=== PATIENT | female | born 1970 | race African-American/Black ===

== ENCOUNTER 2024-01-20 18:41 | Emergency (ER) | payer OTHER ==
[~2024-01-20] VITALS: Ht 165.1 cm; Wt 73.0 kg
[2024-01-20 18:43] VITALS: O2SAT 100
[2024-01-20 19:06] VITALS: TEMP 98.4
[2024-01-20] MEDS: ASPIRIN 81MG TABLET PO ONE (19:14)
[2024-01-20] MEDS: METOPROLOL TARTRATE 25MG TABLET PO ONE (19:15)
[2024-01-20 20:03] LABS: BASOPHILS % 0.6 % (0.0-2.0); DIFFERENTIAL COMMENT 1; EOSINOPHILS % 6.3 % (0.0-5.0); HEMATOCRIT. 41.5 % (36.0-48.0); HEMOGLOBIN. 13.9 g/dL (12.0-16.0); MEAN CORPUSCULAR HEMOGLOBIN 30.2 pg (28.0-32.0); MEAN CORPUSCULAR HGB CONC 33.6 g/dL (31.0-37.0); MEAN CORPUSCULAR VOLUME 89.9 fL (81.0-99.0); MEAN PLATELET VOLUME 8.1 fl (7.4-10.4); MONOCYTES % 5.2 % (2.0-8.0); NEUTROPHILS % 54.9 % (40.0-76.0); PLATELET 223 x1000/uL (130-400); RED BLOOD CELL COUNT 4.61 mill/uL (4.2-5.4); RED CELL DISTRIBUTION WIDTH 12.6 % (11.6-14.6); WHITE BLOOD COUNT 5.3 x1000/uL (4.5-11.0)
[2024-01-20 20:15] LABS: D-DIMER 0.66 mg/L FEU (<0.50); PARTIAL THROMBOPLASTIN TIME 27.9 sec (23.4-31.0)
[2024-01-20 20:19] LABS: ALANINE AMINOTRANSFERASE 13 IU/L (10-49); ALBUMIN 3.8 g/dL (3.2-4.8); ASPARTATE AMINOTRANSFERASE 12 IU/L (<34); BILIRUBIN TOTAL 0.7 mg/dL (0.1-1.0); CALCIUM 8.3 mg/dL (8.7-10.4); CARBON DIOXIDE 29 mEq/L (21-32); CHLORIDE 102 mEq/L (98-107); CREATININE 0.8 mg/dL (0.6-1.0); GLUCOSE 293 mg/dL (70-105); POTASSIUM 3.8 mEq/L (3.5-5.1); PROTEIN TOTAL 6.5 g/dL (6.0-8.3); SODIUM 134 mEq/L (136-145); TROPONIN I HIGH SENSITIVITY 8 ng/L (3.0-34); UREA NITROGEN BLOOD 13 mg/dL (9-23)
[2024-01-20 22:02] VITALS: BP 151/84; PULSE 85; RESP 19
[2024-01-20] MEDS ORDERED: IOHEXOL-350 100 ML BOTTLE ONE (23:27)
== END 2024-01-20 23:15 | disposition home or self-care (01) ==
LOC: ER 18:41 → EDBEDREQ 22:36 → EDBEDREQTM 22:36 → CANBEDREQ 23:09 → ER 23:15
DX: I47.10 Supraventricular tachycardia, unspecified (principal); E11.9 Type 2 diabetes mellitus without complications; I10 Essential (primary) hypertension; Z90.49 Acquired absence of other specified parts of digestive tract
CPT/HCPCS: 80053; 85025; 85379; 85610; 85730; 84484; 36415; 71045; 71275; 93005; 99285; Q9967; Z7610 ×2

== ENCOUNTER 2024-12-16 12:54 | Emergency (ER) | payer OTHER ==
[~2024-12-16] VITALS: Ht 167.6 cm; Wt 75.0 kg
[2024-12-16 12:57] VITALS: O2SAT 100
[2024-12-16] MEDS: SODIUM CHLORIDE 0.9% 1,000 ML IV ONE (13:31)
[2024-12-16 14:07] LABS: ALANINE AMINOTRANSFERASE 15 IU/L (10-49); ALBUMIN 3.9 g/dL (3.2-4.8); ASPARTATE AMINOTRANSFERASE 11 IU/L (<34); BILIRUBIN DIRECT 0.2 mg/dL (<=3.0); BILIRUBIN TOTAL 0.6 mg/dL (0.1-1.0); TROPONIN I HIGH SENSITIVITY 9 ng/L (3.0-34)
[2024-12-16 14:08] LABS: BETA HYDROXYBUTYRATE 0.2 mMol/L (0.0-0.3)
[2024-12-16 14:10] LABS: BASOPHILS % 1.3 % (0.0-2.0); HEMATOCRIT. 43.9 % (36.0-48.0); HEMOGLOBIN. 14.5 g/dL (12.0-16.0); LYMPHOCYTES % 30.9 % (20.0-50.0); MEAN CORPUSCULAR HEMOGLOBIN 29.8 pg (28.0-32.0); MEAN CORPUSCULAR VOLUME 90.2 fL (81.0-99.0); MEAN PLATELET VOLUME 8.6 fl (7.4-10.4); MONOCYTES % 5.7 % (2.0-8.0); NEUTROPHILS % 59.1 % (40.0-76.0); PLATELET 309 x1000/uL (130-400); RED BLOOD CELL COUNT 4.87 mill/uL (4.2-5.4); RED CELL DISTRIBUTION WIDTH 12.8 % (11.6-14.6); WHITE BLOOD COUNT 5.3 x1000/uL (4.5-11.0)
[2024-12-16 14:11] LABS: D-DIMER 0.69 mg/L FEU (<0.50); PROTHROMBIN TIME 10.5 sec (9.6-11.0)
[2024-12-16 16:34] LABS: CHLORIDE 99 mEq/L (98-107); SODIUM 135 mEq/L (136-145)
[2024-12-16 16:35] LABS: CALCIUM 9.4 mg/dL (8.7-10.4); CARBON DIOXIDE 29 mEq/L (21-32)
[2024-12-16 16:39] LABS: CREATININE 0.8 mg/dL (0.6-1.0)
[2024-12-16 16:40] LABS: GLUCOSE 361 mg/dL (70-105); TROPONIN I HIGH SENSITIVITY 33 ng/L (3.0-34); UREA NITROGEN BLOOD 12 mg/dL (9-23)
[2024-12-16 18:00] VITALS: BP 150/82; PULSE 90; RESP 18; TEMP 36.8; O2SAT 98
[2024-12-16] MEDS ORDERED: IOHEXOL-350 100 ML BOTTLE ONE (23:38)
== END 2024-12-16 18:40 | disposition left against medical advice (07) ==
LOC: ER 12:54 → CANBEDREQ 17:52 → ER 18:40
DX: R79.89 Other specified abnormal findings of blood chemistry (principal); E11.9 Type 2 diabetes mellitus without complications; I10 Essential (primary) hypertension; Z90.49 Acquired absence of other specified parts of digestive tract
CPT/HCPCS: 99291; 96360; 71275; 71045; 80076; 80048; 82010; 83880; 83690; 85025; 85379; 85610; 84484; 36415; 93005; Q9967